=== PATIENT | male | born 1965 | race Caucasian/White ===

== ENCOUNTER 2019-08-25 12:13 | Emergency (ER) | payer MEDICAID ==
[2019-08-25] MEDS ORDERED: Sodium Chloride 0.9% 10 ML Syringe FLUSH PRN (12:17)
[2019-08-25] MEDS ORDERED: Aspirin 81 MG Tab.Chew PO ONE (12:23)
--- NOTE | 2019-08-25 12:37 | EDM.PDOC ---
ED HPI GENERAL MEDICAL PROBLEM - General Stated Complaint: CHEST PAINS Time Seen by Provider: 08/25/19 12:13 Source of Information: Reports: Patient History Limitations: Reports: No Limitations - History of Present Illness INITIAL COMMENTS - FREE TEXT/NARRATIVE: Pt. presents to ER with complaints of aching discomfort to his upper back between his shoulder blades. He states that he has had this discomfort intermittently in the past. He states that it started yesterday and had resolved this AM. He was also mildly short of breath which he thought was secondary to his asthma. He states that he used his inhaler, but this did not help completely. He states that this morning, he generally wasn't feeling well; primary complaint was headache. He states that shortly before he came to ER, he had an episode of severe vertigo/near syncope. He states that he was extremely lightheaded. Denies any fever/chills at this time. Pt. states that he was treated for influenza. He states that he was started on Tamiflu and prednisone on 08/11 and states that he was still feeling poorly last weekend. He states that he has continued to cough, but states that he has a chronic cough due to asthma. Denies any chest pain. No jaw, arm, neck pain. No nausea, vomiting, or diarrhea. Risk factors for vascular disease include hypertension and obesity. He is currently taking enalapril/HCTZ 10-25mg. He has a history of ED. Liam NOBLES is his PCP. Onset Date: 08/24/19 Location: Reports: Back, Generalized Associated Symptoms: Reports: Shortness of Breath - Related Data Allergies Allergy/AdvReac Type Severity Reaction Status Date / Time No Known Allergies Allergy Verified 08/25/19 12:17 Home Meds: Home Meds Enalapril/Hydrochlorothiazide [Enalapril-HCTZ 10-25 MG] 1 tab DAILY 08/25/19 [ History] ED ROS GENERAL - Review of Systems Review Of Systems: See Below Constitutional: Denies: Fever, Chills, Malaise, Weakness, Fatigue, Night Sweats , Diaphoresis, Decreased Appetite, Weight Loss, Weight Gain HEENT: Reports: No Symptoms Respiratory: Reports: Cough Cardiovascular: Reports: Other (mid back pain) Endocrine: Reports: No Symptoms GI/Abdominal: Reports: No Symptoms : Reports: No Symptoms Musculoskeletal: Reports: No Symptoms Skin: Reports: No Symptoms Neurological: Reports: No Symptoms Psychiatric: Reports: No Symptoms Hematologic/Lymphatic: Reports: No Symptoms Immunologic: Reports: No Symptoms ED EXAM, GENERAL - Physical Exam Exam: See Below Exam Limited By: No Limitations General Appearance: Alert, WD/WN, No Apparent Distress Eye Exam: Bilateral Eye: EOMI, PERRL Nose: Normal Inspection, No Blood Head: Atraumatic, Normocephalic Neck: Normal Inspection, Supple, Non-Tender, Full Range of Motion Respiratory/Chest: No Respiratory Distress, Lungs Clear, Normal Breath Sounds, No Accessory Muscle Use, Chest Non-Tender Cardiovascular: Normal Peripheral Pulses, Regular Rate, Rhythm, No Edema, No Gallop, No JVD, No Murmur, No Rub Peripheral Pulses: 4+: Radial (L) GI/Abdominal: Soft, Non-Tender, No Organomegaly, No Distention, No Mass (Male) Exam: Deferred Rectal (Males) Exam: Normal Exam, Normal Rectal Tone, Prostate Normal Back Exam: Normal Inspection, Full Range of Motion, Other (No increased pain with palpation of back.) Extremities: Normal Inspection, Normal Range of Motion, Non-Tender, No Pedal Edema, Normal Capillary Refill Neurological: Alert, Oriented, CN II-XII Intact, Normal Cognition, Normal Gait, Normal Reflexes, No Motor/Sensory Deficits Psychiatric: Normal Affect, Normal Mood Skin Exam: Warm, Dry, Intact, Normal Color, No Rash Lymphatic: No Adenopathy EKG INTERPRETATION Rhythm: NSR Webber: Normal P-Wave: Present QRS: Normal ST-T: Normal QT: Normal Course - Vital Signs Last Recorded V/S: Last Vital Signs Temp 36.7 C 08/25/19 12:15 Pulse 86 08/25/19 12:15 Resp 16 08/25/19 12:15 BP 129/105 H 08/25/19 12:15 Pulse Ox 94 L 08/25/19 12:15 - Orders/Labs/Meds Orders: Active Orders 24 hr Category Date Time Status EKG Documentation Completion [RC] STAT Care 08/25/19 12:17 Active Sodium Chloride 0.9% [Saline Flush] Med 08/25/19 12:17 Active 10 ml FLUSH ASDIRECTED PRN Peripheral IV Insertion Adult [OM.PC] Routine Oth 08/25/19 12:18 Ordered Medication Orders Sodium Chloride (Saline Flush) 10 ml FLUSH ASDIRECTED PRN PRN Reason: Keep Vein Open Labs: Laboratory Tests 08/25/19 08/25/19 08/25/19 Range/Units 12:30 12:30 12:30 WBC 8.4 (4.0-10.0) x10^3/uL RBC 4.74 (4.5-6.0) x10^6/uL Hgb 13.7 L (14.0-18.0) g/dL Hct 41.9 (40.0-52.0) % MCV 88.4 (78.0-93.0) fL MCH 28.9 (26.0-32.0) pg MCHC 32.7 (32.0-36.0) g/dL RDW Coeff of Edmund 13.7 (10.0-15.0) % Plt Count 304 (130-400) x10^3/uL Neut % (Auto) 51.2 (50.0-80.0) % Lymph % (Auto) 32.9 (25.0-50.0) % Dauphin % (Auto) 14.0 H (2.0-11.0) % Eos % (Auto) 1.7 (0.0-4.0) % Baso % (Auto) 0.2 (0.2-1.2) % PT 9.8 L (10.0-12.8) SEC INR 0.9 L (2.0-3.5) D-Dimer, Quantitative 0.48 (<=0.58) mg/LFEU Sodium 139 (136-145) mmol/L Potassium 4.1 (3.5-5.1) mmol/L Chloride 100 (98-107) mmol/L Carbon Dioxide 30 (21-32) mmol/L Anion Gap 13.1 (10-20) mmol/L BUN 16 (7-18) mg/dL Creatinine 1.0 (0.70-1.30) mg/dL Est Cr Clr Drug Dosing 88.21 mL/min Estimated GFR (MDRD) > 60 Glucose 117 H (74-106) mg/dL Calcium 9.0 (8.5-10.1) mg/dL Corrected Calcium 9.40 (8.5-10.1) mg/dL Phosphorus 2.6 (2.6-4.7) mg/dL Magnesium 1.8 (1.8-2.4) mg/dL Total Bilirubin 0.5 (0.2-1.0) mg/dL AST 15 (15-37) U/L ALT 26 (16-63) U/L Alkaline Phosphatase 83 (46-116) U/L Troponin I < 0.017 (<=0.056) ng/mL C-Reactive Protein 1.4 H (<=0.9) mg/dL NT-Pro-B Natriuret Pep 9 (<=125) pg/mL Total Protein 7.6 (6.4-8.2) g/dL Albumin 3.5 (3.4-5.0) g/dL Globulin 4.1 Albumin/Globulin Ratio 0.85 Meds: Medications Generic Name Dose Route Start Last Admin Trade Name Freq PRN Reason Stop Dose Admin Sodium Chloride 10 ml 08/25/19 12:17 Saline Flush FLUSH ASDIRECTED PRN Keep Vein Open Discontinued Medications Generic Name Dose Route Start Last Admin Trade Name Freq PRN Reason Stop Dose Admin Aspirin 324 mg 08/25/19 12:23 08/25/19 12:32 Aspirin PO 08/25/19 12:24 324 mg ONETIME ONE Administration - Radiology Interpretation Free Text/Narrative:: chest x-ray is negative for acute pathology Departure - Departure Time of Disposition: 13:28 Disposition: Home, Self-Care 01 Clinical Impression: Near syncope - Discharge Information Instructions: Near-Syncope, [id number] Referrals: Liam Daniels NP [Primary Care Provider] - Forms: ED Department Discharge Additional Instructions: Return to ER immediately if you have any increased back pain, neck, chest or arm pain. Also return if you have any lightheadedness or shortness. Aspirin 81mg 1 tab every AM starting tomorrow. Please feel free to call ER of call or text me if you have any questions/ concerns. My # is [phone]. [facility] will be in contact with you regarding a stress test. Sepsis Event Note - Focused Exam Vital Signs: Vital Signs Temp Pulse Resp BP Pulse Ox 08/25/19 12:15 36.7 C 86 16 129/105 H 94 L Date Exam was Performed: 08/25/19 Time Exam was Performed: 13:27 - Problem List Review Problem List Initiated/Reviewed/Updated: Yes - My Orders Last 24 Hours: My Active Orders 08/25/19 12:17 EKG Documentation Completion [RC] STAT Sodium Chloride 0.9% [Saline Flush] 10 ml FLUSH ASDIRECTED PRN 08/25/19 12:18 Peripheral IV Insertion Adult [OM.PC] Routine - Assessment/Plan Last 24 Hours: My Active Orders 08/25/19 12:17 EKG Documentation Completion [RC] STAT Sodium Chloride 0.9% [Saline Flush] 10 ml FLUSH ASDIRECTED PRN 08/25/19 12:18 Peripheral IV Insertion Adult [OM.PC] Routine Plan: Initial workup including EKG, trop I, chest x-ray, chemistry, and d dimer were all negative. He has a mildly increased CRP but everything else is normal. Discussed findings at length with patient. He was offered admission for serial troponin and EKG but he refused, stating that he did not have health insurance. He was symptom free at time of discharge. he was coughing quite a bit in the ER , and these symptoms could be residual from his recent episode of influenza. He should, however, undergo a stress test MIRELA. I will be in touch with Liam Daniels at [facility] to arrange followup for the patient. In the meantime, pt. was advised to return to ER if he has any chest pain, shortness of breath, lightheadedness, fainting or other worrisome signs/symptoms.
--- NOTE | 2019-08-25 12:45 | CR ---
[id number] RAD/RAD Chest PA or AP 1V EXAM: SINGLE VIEW CHEST. INDICATION: CHEST PAIN COMPARISON: NO PREVIOUS SIMILAR EXAM IS AVAILABLE FINDINGS: The lungs are clear The cardiomediastinal contour is normal IMPRESSION: NO ACUTE PROCESS Ezequiel Cole MD 08/25/19 [id number] Thank you for allowing us to participate in the care of your patient.
[2019-08-25 13:06] LABS: CHLORIDE,CL 100 mmol/L (98-107); SODIUM,NA 139 mmol/L (136-145)
[2019-08-25 13:13] LABS: ANION GAP 13.1 mmol/L (10-20)
== END 2019-08-25 13:27 | disposition home or self-care (01) ==
LOC: VM.ED 12:13
DX: R55 Syncope and collapse (principal); J45.909 Unspecified asthma, uncomplicated; Z79.899 Other long term (current) drug therapy
CPT/HCPCS: 36415; 71045; 80053; 83735; 83880; 84100; 84484; 85025; 85379; 85610; 86140; 93005; 99285; A9270; 93010; 99284-GF